=== PATIENT | female | born 1985 | race Caucasian/White ===

== ENCOUNTER → 2019-04-02 14:53 | Outpatient (CLI) | payer BC, SELFPAY ==
[2019-04-02 17:03] LABS: Vitamin B12 360 pg/mL (211-911)
[2019-04-02 17:04] LABS: AST(SGOT) 17 U/L (15-37); Alanine Aminotransfer ALT/SGPT 20 U/L (13-56); Albumin, Serum 3.7 g/dL (3.2-5.0); Alkaline Phosphatase 79 U/L (45-117); Anion Gap 7 (5-15); BUN 20 mg/dL (7-18); BUN/Creat Ratio 21.2 RATIO (10-20); Calcium,Total 8.7 mg/dL (8.5-10.1); Chloride 108 mmol/L (98-107); Creatinine, Serum 0.94 mg/dL (0.55-1.02); EST Glomerular Filtration Rate 71 mL/min (>60); Est Glom Filt Rate - Afr Amer 86 mL/min (>60); Follicle Stimulating Hormone 1.8 mIU/mL; Globulin 3.6 g/dL (2.2-4.2); Glucose 81 mg/dL (74-106); Luteinizing Hormone 7.1 mIU/mL; Potassium 3.7 mmol/L (3.5-5.1); Protein, Total 7.3 g/dL (6.4-8.2); Sodium Level 139 mmol/L (136-145); Thyroid Stim Hormone (TSH) 1.12 uIU/mL (0.358-3.74)
== END ==
PROVIDERS: Referring Provider Psychiatry & Neurology Neurology; Visit Provider Psychiatry & Neurology Neurology
DX: R41.3 Other amnesia (principal)
CPT/HCPCS: 36415; 80053; 82607; 83001; 83002; 84443

== ENCOUNTER → 2019-11-19 16:21 | Outpatient (CLI) | payer BC, SELFPAY ==
[2019-11-19 16:53] LABS: Absolute Lymphocyte Count 3.27 X10^3/uL (0.83-4.51); Basophil# 0.07 X10^3/uL; Basophil% 0.7 % (0-1); Eosinophil# 0.05 X10^3/uL; Eosinophils% 0.5 % (0-5); Hemoglobin 13.6 g/dL (12.0-15.0); Lymphocyte # 3.27 X10^3/ul (4.0); Lymphocyte % 32.1 % (19-41); Mean Corp Hgb Conc 32.4 g/dL (32-36); Mean Corpuscular Hgb 30.8 pg (27.0-32.0); Mean Corpuscular Volume 95.2 fL (81-99); Mean Platelet Vol. 10.9 fl (6.2-12.0); Monocyte# 0.76 X10^3/uL; Monocyte% 7.5 % (0-10); NRBC Flagged by Analyzer 0 % (0-5); Neutrophil % 58.9 % (47-70); Platelet Count 273 K/mm3 (150-450); RBC Distribution Width CV 11.9 % (11.6-14.6); RBC Distribution Width SD 42.1 fl (35.1-43.9); Red Blood Count 4.41 M/mm3 (4.2-5.4); White Blood Count 10.2 K/mm3 (4.4-11.0)
[2019-11-20 08:35] LABS: Vitamin B12 402 pg/mL (211-911)
== END ==
PROVIDERS: PCP Family Medicine; Referring Provider Family Medicine; Visit Provider Family Medicine
DX: E53.8 Deficiency of other specified B group vitamins (principal)
CPT/HCPCS: 36415; 82607; 85025

== ENCOUNTER → 2021-07-28 | Outpatient (CLI) | payer BC, SELFPAY ==
--- NOTE | 2021-07-28 09:55 | ECHOD_ITS ---
Reason For Study: Murmur Procedure This was a 2D Doppler, Color Flow transthoracic echocardiogram. Exam performed in department. Left Ventricle Normal LV size. Left ventricular systolic function is normal. The estimated ejection fraction is 60 %. Normal diastology for age. No regional wall motion abnormalities noted. Right Ventricle Normal RV size. Normal systolic function. Atria Normal left atrium. Normal right atrium. Mitral Valve Mild diffuse mitral valve thickening. Mild (1+) mitral valve insufficiency. Tricuspid Valve Normal tricuspid valve. Mild to moderate (1-2+) tricuspid valve insufficiency. Pulmonary artery systolic pressure is 30 mmHg. Aortic Valve Normal aortic valve. Trisinus/trileaflet aortic valve. Pulmonic Valve Normal pulmonic valve. Great Vessels Normal aortic root. The pulmonary artery is normal size. Inferior vena cava collapse with sniff. Pericardium/Pleural No pericardial effusion. MMode/2D Measurements & Calculations LVIDd: 4.6 cm IVSd: 0.90 cm Ao root diam: 2.9 cm LVIDs: 2.8 cm LVPWd: 0.92 cm LA dimension: 3.6 cm RVDd: 3.0 cm FS: 38.3 % LAV(MOD-bp): 55.8 ml LA A4 area: 18.8 cm2 RA A4 area: 15.8 cm2 LAV(MOD-bp) Indexed: 37.8 ml/m2 LAV(MOD-sp2): 53.8 ml LAV(MOD-sp4): 52.7 ml Time Measurements MV dec time: 0.22 sec Doppler Measurements & Calculations MV E max malik: 110.5 cm/sec Lat Peak E' Malik: 13.9 cm/sec Med Peak E' Malik: 8.6 cm/sec MV A max malik: 84.1 cm/sec E/E' lat: 8.0 E/E' med: 12.8 MV E/A: 1.3 MV V2 max: 123.1 cm/sec MV P1/2t max malik: 123.8 cm/sec Ao V2 max: 171.2 cm/sec MV max P.1 mmHg MV P1/2t: 112.9 msec Ao max P.7 mmHg MV V2 mean: 62.7 cm/sec MV dec slope: 321.2 cm/sec2 MV mean P.0 mmHg MVA(P1/2t): 1.9 cm2 MV V2 VTI: 45.3 cm LV V1 max: 125.6 cm/sec MR max malik: 528.4 cm/sec PA V2 max: 96.3 cm/sec LV V1 max P.3 mmHg MR max P.7 mmHg MR mean malik: 415.6 cm/sec MR mean P.0 mmHg MR VTI: 215.0 cm TR max malik: 249.8 cm/sec TR max P.0 mmHg ECHO/Echo Complete Interpretation Summary Normal LV size. Left ventricular systolic function is normal. The estimated ejection fraction is 60 %. Mild diffuse mitral valve thickening. Mild to moderate (1-2+) tricuspid valve insufficiency. Mild (1+) mitral valve insufficiency. Normal diastology for age. Ordering Physician: Leann Garcia Referring Physician: Leann Garcia Performed By: Larry Oliveros RCS
== END | disposition home or self-care (01) ==
LOC: CVS 09:53
PROVIDERS: PCP Family Medicine; Referring Provider Family Medicine; Visit Provider Family Medicine
DX: R01.1 Cardiac murmur, unspecified (principal)
CPT/HCPCS: 93306

== ENCOUNTER → 2023-02-10 | Outpatient (CLI) | payer OTHER, SELFPAY ==
--- OUTSIDE RECORDS SUMMARY | 2023-02-10 15:03 | XMS RPT_ITS | CCD ---
Author Name Unknown Address [address] [place] [address] Organization [facility] Care Team Providers Care Message And Delivery Service Pricer Name Role Phone Karen Marley Unavailable Unavailable PROVIDER, UNKNOWN Unavailable Unavailable Cinthya De La Rosa Unavailable Unavailable Cinthya De La Rosa DO Primary Care Provider Cinthya De La Rosa DO Primary Care Provider CINTHYA DE LA ROSA Attending Unavailable CINTHYA DE LA ROSA Primary Care Unavailable EZIO JUÁREZ Attending Unavailable CINTHYA DE LA ROSA Primary Care Unavailable Medications Current Medications Medication Drug Class(es) Dates Sig (Normalized) Sig (Original) folic acid 0.4 mg / vitamin b12 1 mg sublingual tablet (1 source) Vitamin B12 Cobalamin Combin ations (B-12) 100-5000 MCG sublingual tablet 8 hr methylphenidate hydrochloride 20 mg extended release oral tablet (1 source) Central Nervous System Stimulant methylphenidate ER (Metadate ER) 20 MG CR tablet sertraline 25 mg oral tablet (1 source) Serotonin Reuptake Inhibitor sertraline (Zoloft) 25 MG tablet VITAMIN D, CHOLECALCIFEROL, PO (1 source) VITAMIN D, CHOLECALCIFEROL, PO Problems Problem Classification Problem Date Documented Da te Episodic/Chronic Other female genital disorders (1 source) Abnormal uterine bleeding; Translations: [Abnormal uterine and vaginal bleeding, unspecified] 12-22-2022 Chronic Results Test Name Value Interpretation Reference Range Facil ity Vital Signs Date Time Vital Sign Value Performing Clinician Faci lity 12-22-2022 10:49-0500 Body weight 56.79 kg Ezio Juárez MD Work Phone: [employer] 12-22-2022 10:49-0500 Diastolic blood pressure 77 mm[Hg] Ezio Juárez MD Work Phone: [employer] 11-09-2023 10:49-0500 Heart rate 76 /min Ezio Juárez MD Work Phone: [facility] 12-22-2022 10:49-0500 Systolic blood pressure 131 mm[Hg] Ezio Juárez MD Work Phone: [facility] Encounters Encounter Date Encounter Type Care Provider Facility Start: 12-22-2022 End: 12-22-2022 ambulatory EIZO JUÁREZ [facility] Start: 12-22-2022 End: 12-22-2022 Office outpatient new 30 minutes Ezio Juárez MD Work Phone: [facility] Procedures Date Procedure Procedure Detail Performing Clinician Start: 12-22-2022 Follow-up visit Follow-up EZIO JUÁREZ Start: 06-23-2022 QUANTIFERON - PLUS G RAY TUBE Cinthya De La Rosa DO Work Phone: Start: 06-23-2022 QUANTIFERON - PLUS G REEN TUBE Cinthay De La Rosa DO Work Phone: Start: 06-23-2022 QUANTIFERON - PLUS P URPLE TUBE Cinthya De La Rosa DO Work Phone: Start: 06-23-2022 QUANTIFERON - PLUS Y ELLOW TUBE Cinthya De La Rosa DO Work Phone: Start: 06-23-2022 QUANTIFERON TB GOLD Fozia mariam De La Rosa DO Work Phone: Plan of Treatment Date Care Activity Detail Author Start: 2033 Zoster Vaccines (1 of 2) Zoster Vacc rishi (1 of 2) [facility] Start: 06-16-2030 DTaP/Tdap/Td Vaccine s (3 - Td or Tdap) DTaP/Tdap/Td Vaccines (3 - Td or Tdap) [facility] Start: 02-23-2023 End: 02-23-2023 Patient encounter procedure 02/23/2023 11:00 AM EST Procedure Visit [facility] [address] [place] [address] Ezio Juárez MD [address] [place] [address] [facility] Start: 02-14-2023 End: 02-14-2023 Professional / ancillary services management 02/14/2023 11:30 AM EST Ancillary Procedure [facility] [address] [place] [address] [facility] Start: 12-22-2022 End: 12-23-2023 US Pelvis transvaginal US pelvis transvaginal Imaging Routine Abnormal uterine bleeding (AUB) Expected: 12/22/2022, Expires: 12/23/2023 [facility] Work Phone: Immunizations Immunization Date Immunization Notes Care Provider Fa cility 11-15-2021 influenza virus vacc ine, unspecified formulation Cinthya De La Rosa DO Work Phone: [facility] Payers Date Payer Category Payer Unknown 2022 Unknown [id number] Social History Date Type Detail Facility Tobacco smoking stat [facility] Never smoked tobacco [facility] Start: 1985 Sex Assigned At Not on file [facility] Start: 06-13-2022 End: 06-23-2022 Exposure to SARS-CoV-2 (event) Not sure [facility] Start: 02-01-2022 End: 12-22-2022 History of Social function [facility] Start: 02-01-2022 End: 12-22-2022 Tobacco use panel [facility] Start: 12-22-2022 Alcohol intake Current drinke r of alcohol (finding) [facility] Start: 12-22-2022 Alcohol Comment occassionally [facility] History of Present illness Narrative 12-22-2022 Ezio Juárez MD - 12/22/2022 10:45 AM EST Note Date & Type Note Facility 12-22-2022 History of Presen t illness Narrative Images from the original note were not included. Lacie Obrien 12/22/[birth year]22 37 y.o. Chief Complaint Patient presents with Follow-up Patient's last menstrual period was 12/20/2022 (exact date). Primary Care Physician: Cinthya De La Rosa DO HPI: Lacie Obrien is a 37 y.o. female presents for evaluation of heavy periods Hgb 11.9 last check, gets checked frequently with [facility] (has levelas in [place] to show me today) S/p BTL Had paragard IUD Periods regular but heavy Takes ibuprofen 800mg without relief In the past tried control pills but failed Thinks had recent TSH drawn for life insurance work-up Wants endometrial ablation [employer] History Menstrual frequency: Regular, heavy Menstrual flow: Very heavy Associated sx: cramping Sexually active: yes History of STIs: none Last pap date: 2 years ago, normal, through pcp Last pap result: Remote abnl, no leep/ckc Last mammogram: N/a Last colonoscopy: N/a OB History Para Term AB Living 3 2 2 1 2 SAB IAB Ectopic Multiple Live Births 1 2 # Outcome Date GA Lbr Jorge/2nd Weight Sex Delivery Anes PTL Lv 3 Term 09/21/09 M CS-Unspec MADY 2 SAB 2007 FD 1 Term 10/19/05 F CS-Unspec MADY Past Medical History: Diagnosis Date Depression PP Depression Past Surgical History: Procedure Laterality Date BREAST ENHANCEMENT SURGERY SECTION (HISTORICAL) TUBAL LIGATION Family History Problem Relation Name Age of Onset Breast cancer Maternal Grandmother 70s Social History Socioeconomic History Marital status: Spouse name: Not on file Number of children: Not on file Years of education: Not on file Highest education level: Not on file Occupational History Not on file Tobacco Use Smoking status: Never Smokeless tobacco: Never Vaping Use Vaping Use: Never used Substance and Sexual Activity Alcohol use: Yes Comment: occassionally Drug use: Never Sexual activity: Yes Partners: Male control/protection: Female Sterilization Other Topics Concern Not on file Social History Narrative Not on file Social Determinants of Health Financial Resource Strain: Not on file Food Insecurity: Not on file Transportation Needs: Not on file Physical Activity: Not on file Stress: Not on file Social Connections: Not on file Intimate Partner Violence: Not on file Housing Stability: Not on file MEDICATIONS: Current Outpatient Medications Medication Sig Dispense Refill Cobalamin Combinations (B-12) 100-5000 MCG sublingual tablet methylphenidate ER (Metadate ER) 20 MG CR tablet sertraline (Zoloft) 25 MG tablet VITAMIN D, CHOLECALCIFEROL, PO No current facility-administered medications for this visit. ALLERGIES: Allergies as of 12/22/2022 (No Known Allergies) Review ofSystems: Review of Systems Constitutional: Negative for chills and fever. HENT: Negative for congestion and rhinorrhea. Respiratory: Negative for cough and shortness of breath. Cardiovascular: Negative for chest pain and leg swelling. Gastrointestinal: Negative for abdominal pain, constipation, diarrhea, nausea and vomiting. Genitourinary: Positive for menstrual problem. Negative for dysuria, frequency, pelvic pain, vaginal bleeding and vaginal discharge. Neurological: Negative for dizziness and headaches. Physical Exam: BP 131/77 Pulse 76 Wt 125 lb 3.2 oz (56.8 kg) LMP 12/20/2022 (Exact Date) Physical Exam Constitutional: General: She is not in acute distress. Appearance: Normal appearance. She is not ill-appearing. HENT: Head: Normocephalic and atraumatic. Nose: No congestion or rhinorrhea. Eyes: Extraocular Movements: Extraocular movements intact. Conjunctiva/sclera: Conjunctivae normal. Cardiovascular: Rate and Rhythm: Normal rate and regular rhythm. Pulmonary: Effort: Pulmonary effort is normal. Breath sounds: Normal breath sounds. Skin: Coloration: Skin is not jaundiced or pale. Neurological: General: No focal deficit present. Mental Status: She is alert and oriented to person, place, and time. Psychiatric: Mood and Affect: Mood normal. Behavior: Behavior normal. No results found for this or any previous visit (from the past 1008 hour(s)).] ASSESSMENT: 37 y.o. Diagnosis Plan 1. Abnormal uterine bleeding (AUB) US pelvis transvaginal PLAN: Heavy AUB. Recent Hgb wnl (result viewed on red [employer]). Will send us TSH result. Schedule for US and get ROR for last pap. Reviewed tx options for heavy aub- ming, pop, txa, depo, nexplanon, iud, ablation, hysterectomy; r/b of each. Pt desires ablation. Will obtain EMB at [place] Follow up for [employer] US. Orders Placed This Encounter Procedures US pelvis transvaginal Standing Status: Future Standing Expiration Date: 12/23/2023 I spent a total time of 30 minutes reviewing previous notes, test results, obtaining history, communicating results to the patient as well as counseling the patient, documenting clinical information in the patient's electronic medical record and coordinating care for the patient. documented in this encounter [facility] Evaluation note Note Date & Type Note Facility documented in this encounter [facility] Evaluation note Note Date & Type Note Facility documented in this encounter [facility] Health Summary Purpose Family History No Family History Records FoundNo Family History Records Found Advance Directives No Advanced Directives Records FoundNo Advanced Directives Records Found Additional Source Comments INFORMATION SOURCE (unrecogn ized section and content) DATE CREATED AUTHOR AUTHOR'S ORGANIZ ATION 12/24/2022 [facility] Care Teams (unrecognized sec tion and content) Message And Delivery Service Pricer Relationship Specialty Start Date End Date Cinthya De La Rosa DO [address] [place] [phone] PCP - General 03/24/17 Message And Delivery Service Pricer Relationship Specialty Start Date End Date Cinthya De La Rosa DO [address] [place] [phone] PCP - General 03/24/17 Reason for Visit (unrecogniz ed section and content) FOR RECORDS PERTAINING TO PATIENTS WHO ARE OR HAVE BEEN ENROLLED IN A CHEMICAL DEPENDENCY/SUBSTANCEABUSE PROGRAM, SOME INFORMATION MAY BE OMITTED. This clinical summary was aggregated from multiple sources. Caution should be exercised in using it in the provision of clinical care. This summary normalizes information from multiple sources, and as a consequence, information in this document may materially change the coding, format and clinical context of patient data. In addition, data may be omitted in some cases. CLINICAL DECISIONS SHOULD BE BASED ON THE PRIMARY CLINICAL RECORDS. [facility]. provides no warranty or guarantee of the accuracy or completeness of information in this document.
== END | disposition home or self-care (01) ==
LOC: LAB 14:35
PROVIDERS: PCP Family Medicine; Referring Provider Family Medicine; Visit Provider Family Medicine
DX: N93.9 Abnormal uterine and vaginal bleeding, unspecified (principal)
CPT/HCPCS: 36415; 84443

== ENCOUNTER → 2024-08-26 | Outpatient (CLI) | payer OTHER, SELFPAY ==
[2024-08-26 16:18] LABS: Cholesterol 186 mg/dL (<=200); Glucose 89 mg/dL (70-99); Low Density Lipoprotein Calc. 95 mg/dL; Triglycerides 61 mg/dL; Very Low Density Lipoprotein 12 mg/dL (5-40); cholesterol:hdl ratio screen 2.36
[2024-08-28 12:08] LABS: QNTFERON TB Mitogen Value > 10.00 IU/mL (.); QNTFERON TB Nil Value 0.05 IU/mL (.); QNTFERON TB1+ Ag Value 0.08 IU/mL (.); QNTFERON TB2+ Ag Value 0.10 IU/mL (.); QNTIFERON TB Positive Criteria Negative (Negative)
== END | disposition home or self-care (01) ==
LOC: LAB 14:25
PROVIDERS: PCP Family Medicine
DX: Z13.220 Encounter for screening for lipoid disorders (principal); Z13.29 Encounter for screening for other suspected endocrine disorder; Z11.1 Encounter for screening for respiratory tuberculosis
CPT/HCPCS: 36415; 80061; 82947; 86480

== ENCOUNTER → 2024-11-13 | Outpatient (CLI) | payer OTHER, SELFPAY ==
[2024-11-13 13:54] LABS: HIV Nonreactive (Nonreactive); Hepatitis B Surface Antigen Nonreactive (Nonreactive); Hepatitis C Antibody Nonreactive (Nonreactive); Syphilis Antibodies Nonreactive (Nonreactive)
== END | disposition home or self-care (01) ==
PROVIDERS: PCP Family Medicine
DX: Z12.31 Encounter for screening mammogram for malignant neoplasm of breast (principal); Z11.3 Encounter for screening for infections with a predominantly sexual mode of transmission; Z20.2 Contact with and (suspected) exposure to infections with a predominantly sexual mode of transmission
CPT/HCPCS: 36415; 77063; 77067; 86703; 86780; 86803; 87340